=== PATIENT | male | born 1940 | race Caucasian/White ===

== ENCOUNTER 2018-04-18 09:24 | Day surgery (SDC) | payer MEDICARE ==
[2018-04-10 10:24] VITALS: BMI 26.3
[2018-04-18] MEDS ORDERED: Lidocaine 1% (PF) 30 ML VIAL ONE (11:24)
[2018-04-18] MEDS ORDERED: Heparin 10,000 UNITS/1 ML VIAL ONE (11:25)
[2018-04-18] MEDS ORDERED: Fentanyl 100 MCG/2 ML VIAL ONE (12:35)
[2018-04-18] MEDS ORDERED: Propofol 500 MG/50 ML VIAL ONE (13:39)
[2018-04-18] MEDS ORDERED: Midazolam HCl 2 mg/2 ml Vial ONE (13:40)
[2018-04-18] MEDS ORDERED: DOPamine 400 MG/D5W 250 ML 250 ML ONE (14:14)
--- NOTE | 2018-04-19 00:24 | OP ---
DATE OF CONSULTATION: 04/18/2018 This is an EP study and radiofrequency ablation report. REFERRING PHYSICIAN: Ferímn Hernandez MD REASON FOR PROCEDURE: Mr. 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 He is here for EP study and ablation procedure. DESCRIPTION OF PROCEDURE: The patient received deep sedation by anesthesia specialist. After adequa te time of sedation achieved, the right femoral venous area was prepped, draped, and anesthetized usi ng subcutaneous lidocaine. Under ultrasound guidance, two 8- [place] sheaths were introduced. Throug h this, a decapolar CS catheter was inserted through the right ventricle, His bundle, right atrium, a nd eventually to the CS position. Pacing mapping and recording was performed in each location. The baseline finding is an atrial flutter with cycle length 260 milliseconds. Post-pacing interval a t the cavotricuspid isthmus was equal to the tachycardia cycle length. Following that, a [employer] SF ST catheter was advanced to the right atrium and 3D map of the right atrium was obtained. His bun dle and the CS was delineated as was the cavotricuspid isthmus, which was subsequently ablated with a total of 2 minutes and 56 seconds of ablation at 40 bruno. This maneuver terminated atrial flutter and sinus rhythm ensued. Following that, proximal CS pacing was deployed and the transisthmus time w as found to be increased from 40 milliseconds to over 200 milliseconds with the longest transisthmus time measurement was by the ablation line suggestive of block. No recurrent atrial arrhythmias are noted. At the end of the case, the cardiac silhouette did not change of significance to suggest any effusion . Measurements including baseline cycle length after ablation, TX 234, QRS 95, QT 420, HV 54 mill iseconds. AV Wenckebach cycle length was 500 milliseconds. No VA conduction was noted. CONCLUSION: Successful ablation of a cavotricuspid isthmus-dependent atrial flutter. PLAN: Routine followup. Resume anticoagulation.
--- NOTE | 2018-04-22 10:07 | EKG ---
Test Reason : Blood Pressure : / mmHG Vent. Rate : 064 BPM Atrial Rate : 064 BPM P-R Int : 190 ms QRS Dur : 108 ms QT Int : 434 ms P-R-T Axes : 071 041 051 degrees QTc Int : 447 ms Sinus rhythm with Premature atrial complexes Otherwise normal ECG When compared with ECG of 10-APR-2018 11:24, Sinus rhythm has replaced Atrial flutter ST no longer elevated in Inferior leads Confirmed by DR. Nohemy MARTINEZ ([id number]) on 04/22/2018 10:06:39 AM Referred By: GAYLA Confirmed By:DR. Nohemy MARTINEZ
== END 2018-04-18 18:08 | disposition home or self-care (01) ==
LOC: CCL 09:24
PROVIDERS: ATTEND Internal Medicine Cardiovascular Disease
PROC: 4A023FZ Measurement of Cardiac Rhythm, Percutaneous Approach (ICD-10-PCS; principal; 2018-04-18)
PROC: 4A0234Z Measurement of Cardiac Electrical Activity, Percutaneous Approach (ICD-10-PCS; 2018-04-18)
PROC: 02583ZZ Destruction of Conduction Mechanism, Percutaneous Approach (ICD-10-PCS; 2018-04-18)
DX: I48.3 Typical atrial flutter (principal); I10 Essential (primary) hypertension; G47.30 Sleep apnea, unspecified; E78.5 Hyperlipidemia, unspecified; E03.9 Hypothyroidism, unspecified; Z86.718 Personal history of other venous thrombosis and embolism; Z79.01 Long term (current) use of anticoagulants; Z79.899 Other long term (current) drug therapy; Z88.1 Allergy status to other antibiotic agents; Z88.8 Allergy status to other drugs, medicaments and biological substances; Z91.030 Bee allergy status
CPT/HCPCS: 76942; 93005; 93613; 93623; 93653; C1730; C1769; 93010; J1265; J1644; J2001; J2250; J2704; J3010